=== PATIENT | male | born 1955 | race African-American/Black ===

== ENCOUNTER 2017-03-23 08:10 | Emergency (ER) | payer MEDICAID ==
[~2017-03-23] VITALS: Ht 167.6 cm; Wt 58.0 kg
[~2017-03-23 08:10] MED LIST: NAPH1POW3 PO
[2017-03-23] MEDS ORDERED: FOLIC ACID 1 MG, THIAMINE HCL 100 MG, MVI, ADULT NO.1 10 ML in DEXTROSE 5% WATER 1,000 ML IV ONE ×4 (08:30)
[2017-03-23 08:57] LABS: HEMATOCRIT. 32.8 % (42.0-52.0); HEMOGLOBIN. 11.4 g/dL (14.0-18.0); MEAN CORPUSCULAR VOLUME 97.6 fL (80.0-94.0); MEAN PLATELET VOLUME 6.8 fl (7.4-10.4); PLATELET 239 x1000/uL (130-400); RED BLOOD CELL COUNT 3.36 mill/uL (4.7-6.1); RED CELL DISTRIBUTION WIDTH 14.4 % (11.6-14.6)
[2017-03-23 09:07] LABS: INR 1.1; PARTIAL THROMBOPLASTIN TIME 29.1 sec (24.0-34.0); PROTHROMBIN TIME 11.4 sec
[2017-03-23 09:14] LABS: CARBON DIOXIDE 26 mEq/L (21-32); CHLORIDE 95 mEq/L (98-107); ETHANOL BLOOD < 10 mg/dL; TROPONIN I < 0.02 ng/mL (0.00-0.04)
[2017-03-23 09:29] LABS: *AMPHETAMINES SCREEN URINE NEGATIVE (NEGATIVE); *BARBITURATES SCREEN URINE NEGATIVE (NEGATIVE); *BENZODIAZEPINES SCREEN URINE NEGATIVE (NEGATIVE); *COCAINE SCREEN URINE NEGATIVE (NEGATIVE); CANNABINOID URINE SCREEN PRESUMTIVE POSITIVE (NEGATIVE); METHADONE URINE SCREEN NEGATIVE (NEGATIVE); OPIATES URINE SCREEN NEGATIVE (NEGATIVE); PHENCYCLIDINE URINE SCREEN NEGATIVE (NEGATIVE)
[2017-03-23] MEDS ORDERED: LORAZEPAM 0.5MG TABLET PO ONE (09:30)
[2017-03-23 09:34] LABS: NUCLEATED RED BLOOD CELLS 1 /100 WBC; PLATELET ESTIMATE NORMAL
[2017-03-23] MEDS ORDERED: MAGNESIUM 1 G PREMIX 100 ML IV ONE (10:00)
[2017-03-23 12:23] VITALS: BP 138/81
== END 2017-03-23 12:25 | disposition home or self-care (01) ==
LOC: ER 08:24
DX: E16.2 Hypoglycemia, unspecified (principal); F10.20 Alcohol dependence, uncomplicated; F20.9 Schizophrenia, unspecified; F17.200 Nicotine dependence, unspecified, uncomplicated; F12.10 Cannabis abuse, uncomplicated
CPT/HCPCS: 36415; 71010; 80048; 80305; 83735; 84484; 85025; 85610; 85730; 93005; 96365; 96366; 96367; 99285; G0482; J3411; J3475; J3490; J7070; Z7610

== ENCOUNTER 2017-04-23 16:44 | Inpatient (IN) | payer MEDICAID ==
[~2017-04-23] VITALS: Ht 167.6 cm; Wt 59.0 kg
[2017-04-23] MEDS ORDERED: ONDANSETRON HCL 4MG/2ML VIAL IV STA (17:41)
[2017-04-23] MEDS ORDERED: SODIUM CHLORIDE 0.9% 1,000 ML IV ONE (17:41)
[2017-04-23] MEDS ORDERED: FOLIC ACID 1 MG, THIAMINE HCL 100 MG, MVI, ADULT NO.1 10 ML in DEXTROSE 5% WATER 1,000 ML IV ONE ×4 (17:45)
[2017-04-23 18:19] LABS: INR 1.1; PROTHROMBIN TIME 11.3 sec (9.4-11.6)
[2017-04-23 18:22] LABS: CARBON DIOXIDE 24 mEq/L (21-32); CHLORIDE 75 mEq/L (98-107)
[2017-04-23 18:29] LABS: ETHANOL BLOOD 46 mg/dL; TROPONIN I < 0.02 ng/mL (0.00-0.04)
[2017-04-23 19:05] LABS: MEAN CORPUSCULAR VOLUME 92.6 fL (80.0-94.0); RED CELL DISTRIBUTION WIDTH 15.2 % (11.6-14.6)
[2017-04-23 19:16] LABS: BASOPHILS % 0.3 % (0.0-2.0); EOSINOPHILS % 0.2 % (0.0-5.0); HEMATOCRIT. 40.7 % (42.0-52.0); HEMOGLOBIN. 14.9 g/dL (14.0-18.0); LYMPHOCYTES % 22.6 % (20.0-50.0); MEAN CORPUSCULAR HEMOGLOBIN 33.9 pg (28.0-32.0); MEAN PLATELET VOLUME 9.1 fl (7.4-10.4); MONOCYTES % 12.7 % (2.0-8.0); NEUTROPHILS % 64.2 % (40.0-76.0); PLATELET 140 x1000/uL (130-400)
[2017-04-23] MEDS ORDERED: MAGNESIUM 1 G PREMIX 100 ML IV ONE (19:30)
[2017-04-23] MEDS ORDERED: POTASSIUM CHLORIDE 20MEQ TABLET SR PO ONE (19:30)
[2017-04-23] MEDS ORDERED: LORAZEPAM 2MG/ML CPJ IV ONE (21:15)
[2017-04-23] MEDS ORDERED: ONDANSETRON HCL 4MG/2ML VIAL IV ONE (21:15)
[2017-04-23] MEDS ORDERED: THIAMINE HCL 100 MG/1 ML 2ML VIAL ONE (21:22)
[2017-04-23] MEDS ORDERED: POTASSIUM CHLORIDE INJ 40 MEQ in SODIUM CHLORIDE 0.9% 1,000 ML IV SCH (21:30)
[2017-04-23] MEDS ORDERED: CHLORDIAZEPOXIDE 25MG CAPSULE PO PRN (21:30)
[2017-04-23] MEDS ORDERED: SODIUM CHLORIDE 0.9% 1,000 ML IV SCH (21:34)
[2017-04-23 21:39] LABS: PHOSPHORUS 2.1 mg/dL (2.5-4.9)
[2017-04-23] MEDS ORDERED: DOCUSATE SODIUM 100MG CAPSULE PO PRN (21:45)
[2017-04-23] MEDS ORDERED: IPRATROPIUM/ALBUTEROL 0.5-3(2.5)MG/3ML NEB INH PRN (21:45)
[2017-04-23] MEDS ORDERED: DIPHENHYDRAMINE 50MG/ML VIAL IV PRN (21:45)
[2017-04-23] MEDS ORDERED: MAGNESIUM/ALUMINUM HYDROXIDE/SIMETHICONE 30ML UDC PO PRN (21:45)
[2017-04-23] MEDS ORDERED: HYDROCODONE/ACETAMINOPHEN 5/325MG TABLET PO PRN (21:45)
[2017-04-23] MEDS ORDERED: ACETAMINOPHEN 650MG SUPP PR PRN (21:45)
[2017-04-23] MEDS ORDERED: ACETAMINOPHEN 650MG/20.3ML UDC GT PRN (21:45)
[2017-04-23] MEDS ORDERED: LORAZEPAM 2MG/ML CPJ IV PRN (21:45)
[2017-04-23] MEDS ORDERED: CLONIDINE 0.1MG TABLET PO PRN (21:45)
[2017-04-23 21:47] LABS: CREATINE KINASE 88 IU/L (39-308)
[2017-04-23 23:13] LABS: CHLORIDE 79 mEq/L (98-107)
[2017-04-23 23:18] LABS: CARBON DIOXIDE 28 mEq/L (21-32)
[2017-04-23 23:23] LABS: CREATINE KINASE 103 IU/L (39-308)
[2017-04-24] VITALS: BP 117/89
[2017-04-24] MEDS: ONDANSETRON HCL 4MG/2ML VIAL IV PRN ×2 (00:56→13:57)
[2017-04-24] MEDS ORDERED: KCL 20MEQ/100ML PREMIX 100 ML IV NR (01:00)
[2017-04-24 04:01] VITALS: BP 128/86
[2017-04-24] MEDS ORDERED: [UNRECOGNIZED DRUG - REMARK] IV SCH ×5 (05:00)
[2017-04-24 06:15] LABS: HEMATOCRIT. 34.2 % (42.0-52.0); HEMOGLOBIN. 12.6 g/dL (14.0-18.0); MEAN CORPUSCULAR HEMOGLOBIN 34.6 pg (28.0-32.0); MEAN CORPUSCULAR VOLUME 94.1 fL (80.0-94.0); MEAN PLATELET VOLUME 8.9 fl (7.4-10.4); PLATELET 124 x1000/uL (130-400); RED BLOOD CELL COUNT 3.64 mill/uL (4.7-6.1); RED CELL DISTRIBUTION WIDTH 14.9 % (11.6-14.6)
[2017-04-24 06:41] LABS: CARBON DIOXIDE 27 mEq/L (21-32); CHLORIDE 81 mEq/L (98-107); CREATINE KINASE 80 IU/L (39-308); HDL CHOLESTEROL 73 mg/dL (40-59); LDL CHOLESTEROL 32 mg/dL (5-100); PHOSPHORUS 2.3 mg/dL (2.5-4.9)
[2017-04-24] MEDS ORDERED: DEXT 5%/0.45% NACL KCL 40MEQ/L 1,000 ML IV SCH (07:15)
[2017-04-24 08:00] VITALS: BP 102/66
[2017-04-24] MEDS ORDERED: POTASSIUM CHLORIDE 20MEQ TABLET SR PO SCH (08:00)
[2017-04-24] MEDS ORDERED: POTASSIUM PHOS,M-BASIC-D-BASIC 10 MMOL in DEXT 5% WATER 246.6667 ML IV SCH (09:00)
[2017-04-24] MEDS: POTASSIUM CHLORIDE 20MEQ/PACKET PO SCH ×2 (09:54→11:17)
[2017-04-24] MEDS: PANTOPRAZOLE 40MG DR TABLET PO SCH (09:55)
[2017-04-24] MEDS: SODIUM CHLORIDE 0.9% INJ 3ML FLUSH IVF SCH ×3 (10:18→22:00)
[2017-04-24 12:00] VITALS: BP 109/61
[2017-04-24 12:27] LABS: NUCLEATED RED BLOOD CELLS 1 /100 WBC; PLATELET ESTIMATE SLIGHTLY DECREASED
[2017-04-24] MEDS ORDERED: POTASSIUM CHLORIDE 20MEQ TABLET SR PO NR (12:30)
[2017-04-24] MEDS ORDERED: SODIUM CHLORIDE 0.9% 1,000 ML IV SCH ×2 (12:45→14:00)
[2017-04-24] MEDS ORDERED: [UNRECOGNIZED DRUG - REMARK] IV SCH ×5 (14:30)
[2017-04-24 16:00] VITALS: BP 130/89
[2017-04-24] MEDS: CHLORDIAZEPOXIDE 25MG CAPSULE PO SCH ×2 (16:18→17:39)
[2017-04-24 17:25] LABS: CARBON DIOXIDE 21 mEq/L (21-32); CHLORIDE 89 mEq/L (98-107)
[2017-04-24 18:29] LABS: CLARITY URINE CLEAR (CLEAR); COLOR URINE DARK YELLOW (YELLOW); GLUCOSE URINE TRACE (NEGATIVE); KETONES URINE TRACE (NEGATIVE); LEUKOCYTE ESTERASE URINE TRACE (NEGATIVE); NITRITE URINE NEGATIVE (NEGATIVE); OCCULT BLOOD URINE NEGATIVE (NEGATIVE); PH URINE 5.5 (4.5-8.0); PROTEIN URINE NEGATIVE (NEGATIVE); SPECIFIC GRAVITY URINE 1.024 (1.005-1.030)
[2017-04-24 18:57] LABS: *AMPHETAMINES SCREEN URINE NEGATIVE (NEGATIVE); *BARBITURATES SCREEN URINE NEGATIVE (NEGATIVE); *BENZODIAZEPINES SCREEN URINE NEGATIVE (NEGATIVE); *COCAINE SCREEN URINE NEGATIVE (NEGATIVE); CANNABINOID URINE SCREEN PRESUMTIVE POSITIVE (NEGATIVE); METHADONE URINE SCREEN NEGATIVE (NEGATIVE); OPIATES URINE SCREEN NEGATIVE (NEGATIVE); PHENCYCLIDINE URINE SCREEN NEGATIVE (NEGATIVE)
[2017-04-24 21:03] VITALS: BP 90/69
[2017-04-25] MEDS: POTASSIUM CHLORIDE INJ 40 MEQ in DEXT 5%/0.9% NACL 1,000 ML IV SCH ×2 (00:46→05:44)
[2017-04-25 00:48] VITALS: BP 123/86
[2017-04-25 05:00] VITALS: BP 113/80
[2017-04-25] MEDS: SODIUM CHLORIDE 0.9% INJ 3ML FLUSH IVF SCH (05:43)
[2017-04-25 06:59] LABS: CARBON DIOXIDE 25 mEq/L (21-32); CHLORIDE 99 mEq/L (98-107); PHOSPHORUS 1.4 mg/dL (2.5-4.9)
[2017-04-25 08:00] VITALS: BP 109/78
[2017-04-25 08:50] LABS: BASOPHILS % 0.1 % (0.0-2.0); EOSINOPHILS % 0.1 % (0.0-5.0); HEMATOCRIT. 30.3 % (42.0-52.0); HEMOGLOBIN. 10.5 g/dL (14.0-18.0); LYMPHOCYTES % 7.2 % (20.0-50.0); MEAN CORPUSCULAR VOLUME 97.5 fL (80.0-94.0); MEAN PLATELET VOLUME 8.5 fl (7.4-10.4); NEUTROPHILS % 84.6 % (40.0-76.0); PLATELET 112 x1000/uL (130-400); RED BLOOD CELL COUNT 3.11 mill/uL (4.7-6.1); RED CELL DISTRIBUTION WIDTH 15.5 % (11.6-14.6)
[2017-04-25] MEDS: PANTOPRAZOLE 40MG DR TABLET PO SCH (08:57)
[2017-04-25] MEDS ORDERED: CHLORDIAZEPOXIDE 25MG CAPSULE PO SCH (09:00)
[2017-04-25] MEDS ORDERED: MAGNESIUM 2 G PREMIX 50 ML IV SCH (10:00)
[2017-04-25] MEDS ORDERED: SODIUM PHOS,M-BASIC-D-BASIC 20 MM in DEXT 5% WATER 243.3333 ML IV SCH (10:00)
[2017-04-25 12:00] VITALS: BP 102/62
[2017-04-25 16:07] VITALS: BP 102/62
[2017-04-26] MEDS ORDERED: FAMOTIDINE 20MG TABLET PO SCH (09:00)
== END 2017-04-25 16:24 | disposition home or self-care (01) | DRG 469 ==
LOC: ER 16:54 → 5WST 20:02 → EDBEDREQ 20:11 → ENRESERV 20:28
PROVIDERS: ADMIT Family Medicine; ATTEND Family Medicine
DX: N17.0 Acute kidney failure with tubular necrosis (principal); G93.41 Metabolic encephalopathy; D69.6 Thrombocytopenia, unspecified; E44.0 Moderate protein-calorie malnutrition; K57.92 Diverticulitis of intestine, part unspecified, without perforation or abscess without bleeding; K76.0 Fatty (change of) liver, not elsewhere classified; E87.1 Hypo-osmolality and hyponatremia; E83.42 Hypomagnesemia; E83.39 Other disorders of phosphorus metabolism; F10.129 Alcohol abuse with intoxication, unspecified; E87.6 Hypokalemia; F12.90 Cannabis use, unspecified, uncomplicated; J44.9 Chronic obstructive pulmonary disease, unspecified; K44.9 Diaphragmatic hernia without obstruction or gangrene; R29.6 Repeated falls; M47.9 Spondylosis, unspecified; F20.9 Schizophrenia, unspecified; K40.20 Bilateral inguinal hernia, without obstruction or gangrene, not specified as recurrent; Z87.891 Personal history of nicotine dependence; Z80.3 Family history of malignant neoplasm of breast; Z68.21 Body mass index [BMI] 21.0-21.9, adult
CPT/HCPCS: 36415; 70450; 71010; 76770; 80053; 80061; 80305; 81001; 82550; 82570; 83735; 83880; 83930; 83935; 84100; 84133; 84300; 84443; 84484; 85025; 85610; 87493; 93005; 96365; 96367; 96375; 96376; 99285; G0482; J2060; J2405; J3411; J3475; J3480; J3490; J7030; J7042; J7050; J7060; J7070

== ENCOUNTER 2019-03-27 11:31 | Inpatient (IN) | payer MEDICARE, MEDICAID ==
[~2019-03-27] VITALS: Ht 195.6 cm; Wt 58.5 kg
[2019-03-27] MEDS ORDERED: SODIUM CHLORIDE 0.9% 1000ML BAG (SEPSIS BOLUS) IV ONE (12:45)
[2019-03-27 13:32] LABS: CHLORIDE 94 mEq/L (98-107)
[2019-03-27 13:35] LABS: PARTIAL THROMBOPLASTIN TIME 26.4 sec (23.4-31.0); PROTHROMBIN TIME 10.7 sec (9.6-11.0)
[2019-03-27 13:43] LABS: BASOPHILS % 0.5 % (0.0-2.0); HEMATOCRIT. 37.1 % (42.0-52.0); HEMOGLOBIN. 13.4 g/dL (14.0-18.0); LYMPHOCYTES % 8.4 % (20.0-50.0); MEAN CORPUSCULAR HEMOGLOBIN 35.3 pg (28.0-32.0); MEAN CORPUSCULAR VOLUME 97.9 fL (80.0-94.0); MONOCYTES % 14.1 % (2.0-8.0); PLATELET 228 x1000/uL (130-400); RED BLOOD CELL COUNT 3.78 mill/uL (4.7-6.1); RED CELL DISTRIBUTION WIDTH 14.7 % (11.6-14.6)
[2019-03-27] MEDS ORDERED: KCL 20MEQ/100ML PREMIX 100 ML IV ONE (15:00)
[2019-03-27] MEDS ORDERED: POTASSIUM CHLORIDE 20MEQ TABLET SR PO ONE (15:00)
[2019-03-27] MEDS ORDERED: SODIUM CHLORIDE 0.9% 1,000 ML IV SCH (16:00)
[2019-03-27] MEDS ORDERED: DIATR MEGLU/DIATRIZOATE SOLN 30ML PO SCH (16:00)
[2019-03-27] MEDS ORDERED: ACETAMINOPHEN 325MG TABLET PO PRN (16:00)
[2019-03-27 17:01] LABS: PHOSPHORUS 5.4 mg/dL (2.5-4.9)
[2019-03-27 17:05] LABS: CREATINE KINASE MB FRACTION < 1.0 ng/mL (0.5-3.6)
[2019-03-27 19:57] LABS: CREATINE KINASE 43 IU/L (39-308)
[2019-03-27 20:20] VITALS: BP 133/95
[2019-03-27 21:00] VITALS: BP 133/95
[2019-03-27] MEDS ORDERED: POTASSIUM CHLORIDE INJ 40 MEQ in DEXT 5% WATER 250 ML IV NR (22:00)
[2019-03-28] VITALS: BP 128/80
[2019-03-28] MEDS: DEXT 5%/0.9% NACL 1,000 ML IV SCH ×2 (00:29→09:27)
[2019-03-28 04:00] VITALS: BP 139/93
[2019-03-28 06:01] LABS: PHOSPHORUS 2.5 mg/dL (2.5-4.9)
[2019-03-28 06:16] LABS: HEMATOCRIT. 34.3 % (42.0-52.0); HEMOGLOBIN. 12.2 g/dL (14.0-18.0); MEAN CORPUSCULAR HEMOGLOBIN 35.5 pg (28.0-32.0); MEAN PLATELET VOLUME 8.3 fl (7.4-10.4); PLATELET 181 x1000/uL (130-400); RED BLOOD CELL COUNT 3.43 mill/uL (4.7-6.1); RED CELL DISTRIBUTION WIDTH 14.5 % (11.6-14.6)
[2019-03-28] MEDS ORDERED: POTASSIUM CHLORIDE INJ 40 MEQ in DEXT 5% WATER 250 ML IV ONE (07:45)
[2019-03-28 08:00] VITALS: BP 132/87
[2019-03-28] MEDS ORDERED: POTASSIUM CHLORIDE INJ 40 MEQ in DEXT 5% WATER 250 ML IV NR (08:00)
[2019-03-28] MEDS ORDERED: SODIUM BICARBONATE 8.4% 1 MEQ/ML 50ML SYR IV NR (09:34)
[2019-03-28 10:05] LABS: NUCLEATED RED BLOOD CELLS 1 /100 WBC
[2019-03-28 10:06] LABS: PLATELET ESTIMATE NORMAL
[2019-03-28] MEDS ORDERED: POTASSIUM CHLORIDE INJ 60 MEQ in DEXT 5% WATER 500 ML IV NR (10:30)
[2019-03-28 10:50] LABS: BG BASE EXCESS -13.1 mmol/L (-2.0-2.0); BG CARBOXYHEMOGLOBIN 0.3 % (0.5-1.5); BG DEOXYHEMOGLOBIN 2.1 % (0.0-5.0); BG FRACTION INSPIRED OXYGEN 21; BG HCO3 ACT 8.9 mmol/L (22.0-26.0); BG METHEMOGLOBIN 0.3 % (0.0-1.5); BG OXYGEN SATURATION 97.9 % (92.0-98.5); BG OXYHEMOGLOBIN 97.3 % (94.0-97.0); BG PCO2 14.2 mmHg (35.0-45.0); BG PH 7.414 (7.350-7.450); BG PO2 136.8 mmHg (75.0-100.0); BG SAMPLE SITE RIGHT BRACHIAL; BG TOTAL HEMOGLOBIN 11.3 g/dL (12.0-18.0); BG VENT MODE ROOM AIR
[2019-03-28] MEDS: SODIUM BICARBONATE 100 MEQ in SODIUM CHLORIDE 0.45% 900 ML IV SCH ×2 (11:22→23:50)
[2019-03-28 12:00] VITALS: BP 115/78
[2019-03-28 12:07] LABS: CLARITY URINE CLEAR (CLEAR); COLOR URINE DARK YELLOW (YELLOW); KETONES URINE TRACE (NEGATIVE); LEUKOCYTE ESTERASE URINE NEGATIVE (NEGATIVE); NITRITE URINE NEGATIVE (NEGATIVE); OCCULT BLOOD URINE NEGATIVE (NEGATIVE); PROTEIN URINE 1+ (NEGATIVE); SPECIFIC GRAVITY URINE 1.018 (1.005-1.030)
[2019-03-28] MEDS: ONDANSETRON HCL 4MG/2ML INJ IV PRN (15:49)
[2019-03-28 16:00] VITALS: BP 114/84
[2019-03-28 17:02] LABS: *AMPHETAMINES SCREEN URINE NEGATIVE (NEGATIVE); *BARBITURATES SCREEN URINE NEGATIVE (NEGATIVE)
[2019-03-28 17:03] LABS: *BENZODIAZEPINES SCREEN URINE NEGATIVE (NEGATIVE); *COCAINE SCREEN URINE NEGATIVE (NEGATIVE); CANNABINOID URINE SCREEN PRESUMTIVE POSITIVE (NEGATIVE); METHADONE URINE SCREEN NEGATIVE (NEGATIVE); OPIATES URINE SCREEN NEGATIVE (NEGATIVE); PHENCYCLIDINE URINE SCREEN NEGATIVE (NEGATIVE)
[2019-03-28 20:42] VITALS: BP 98/68
[2019-03-29] VITALS: BP 101/69
[2019-03-29 04:00] VITALS: BP 97/62
[2019-03-29] MEDS: SODIUM BICARBONATE 100 MEQ in SODIUM CHLORIDE 0.45% 900 ML IV SCH ×4 (05:52→18:18)
[2019-03-29 07:51] LABS: FOLIC ACID (FOLATE) SERUM 6.4 ng/mL (>5.38)
[2019-03-29 08:00] VITALS: BP 111/51
[2019-03-29] MEDS ORDERED: POTASSIUM CHLORIDE INJ 40 MEQ in DEXT 5% WATER 250 ML IV SCH (09:30)
[2019-03-29 09:43] LABS: HEMATOCRIT. 26.8 % (42.0-52.0); HEMOGLOBIN. 9.5 g/dL (14.0-18.0); MEAN CORPUSCULAR VOLUME 98.1 fL (80.0-94.0); MEAN PLATELET VOLUME 8.4 fl (7.4-10.4); PLATELET 151 x1000/uL (130-400); RED BLOOD CELL COUNT 2.73 mill/uL (4.7-6.1); RED CELL DISTRIBUTION WIDTH 14.6 % (11.6-14.6)
[2019-03-29 10:14] LABS: PLATELET ESTIMATE NORMAL
[2019-03-29 11:31] VITALS: BP 97/62
[2019-03-29] MEDS: ONDANSETRON HCL 4MG/2ML INJ IV PRN (13:57)
[2019-03-29 15:49] VITALS: BP 113/92
[2019-03-29 20:21] VITALS: BP 91/62
[2019-03-30 00:27] VITALS: BP 96/71
[2019-03-30] MEDS: SODIUM BICARBONATE 100 MEQ in SODIUM CHLORIDE 0.45% 900 ML IV SCH ×3 (01:46→15:50)
[2019-03-30] MEDS: ZOLPIDEM TARTRATE 5MG TABLET PO PRN (01:46)
[2019-03-30 04:43] VITALS: BP 110/61
[2019-03-30 07:36] LABS: PHOSPHORUS 1.2 mg/dL (2.5-4.9)
[2019-03-30 07:53] LABS: BASOPHILS % 0.6 % (0.0-2.0); EOSINOPHILS % 0.3 % (0.0-5.0); HEMATOCRIT. 25.6 % (42.0-52.0); HEMOGLOBIN. 9.2 g/dL (14.0-18.0); LYMPHOCYTES % 7.5 % (20.0-50.0); MEAN CORPUSCULAR HEMOGLOBIN 35.5 pg (28.0-32.0); MEAN CORPUSCULAR VOLUME 98.5 fL (80.0-94.0); MEAN PLATELET VOLUME 8.9 fl (7.4-10.4); MONOCYTES % 9.9 % (2.0-8.0); NEUTROPHILS % 81.7 % (40.0-76.0); PLATELET 124 x1000/uL (130-400); RED CELL DISTRIBUTION WIDTH 15.1 % (11.6-14.6)
[2019-03-30 08:00] VITALS: BP 170/59
[2019-03-30] MEDS ORDERED: POTASSIUM CHLORIDE 20MEQ TABLET SR PO NR (11:30)
[2019-03-30 12:00] VITALS: BP 105/68
[2019-03-30] MEDS ORDERED: MAGNESIUM 2 G PREMIX 50 ML IV NR (13:00)
[2019-03-30] MEDS ORDERED: CEFTRIAXONE 1 G PREMIX 50 ML IV SCH (13:00)
[2019-03-30] MEDS ORDERED: CEFTRIAXONE 1,000 MG in DEXTROSE 5% WATER 50 ML IV SCH (13:00)
[2019-03-30] MEDS ORDERED: POTASSIUM PHOS,M-BASIC-D-BASIC 30 MMOL in DEXT 5% WATER 500 ML IV NR (13:00)
[2019-03-30 15:08] LABS: ANTI-NUCLEAR ANTIBODIES DIRECT Negative (Negative)
[2019-03-30 16:00] VITALS: BP 102/61
[2019-03-30] MEDS ORDERED: POTASSIUM CHLORIDE 20MEQ TABLET SR PO SCH (16:00)
[2019-03-30 20:00] VITALS: BP 90/60
[2019-03-31] VITALS: BP 100/67
[2019-03-31 04:00] VITALS: BP 100/76
[2019-03-31] MEDS: SODIUM BICARBONATE 100 MEQ in SODIUM CHLORIDE 0.45% 900 ML IV SCH (04:27)
[2019-03-31 08:09] LABS: BASOPHILS % 0.3 % (0.0-2.0); EOSINOPHILS % 0.5 % (0.0-5.0); HEMATOCRIT. 28.1 % (42.0-52.0); HEMOGLOBIN. 9.9 g/dL (14.0-18.0); LYMPHOCYTES % 10.5 % (20.0-50.0); MEAN CORPUSCULAR HEMOGLOBIN 34.7 pg (28.0-32.0); MEAN CORPUSCULAR VOLUME 98.6 fL (80.0-94.0); MEAN PLATELET VOLUME 9.3 fl (7.4-10.4); MONOCYTES % 11.6 % (2.0-8.0); NEUTROPHILS % 77.1 % (40.0-76.0); PLATELET 130 x1000/uL (130-400); RED BLOOD CELL COUNT 2.85 mill/uL (4.7-6.1)
[2019-03-31 08:38] LABS: PHOSPHORUS 3.5 mg/dL (2.5-4.9)
[2019-03-31 08:40] VITALS: BP 110/71
[2019-03-31] MEDS ORDERED: POTASSIUM CHLORIDE 20MEQ TABLET SR PO NR (09:45)
[2019-03-31 10:06] LABS: COMPLEMENT C3 54 mg/dL (82-167)
[2019-03-31] MEDS ORDERED: MAGNESIUM 2 G PREMIX 50 ML IV NR (10:30)
[2019-03-31] MEDS: SODIUM CHLORIDE 0.45% 1,000 ML IV SCH ×2 (11:26→22:23)
[2019-03-31 12:03] VITALS: BP 110/77
[2019-03-31 12:15] VITALS: BP 110/77
[2019-03-31] MEDS ORDERED: CEFTRIAXONE 1 G PREMIX 50 ML IV SCH (14:00)
[2019-03-31 16:10] VITALS: BP 115/70
[2019-03-31] MEDS: ZOLPIDEM TARTRATE 5MG TABLET PO PRN (22:19)
[2019-04-01 00:18] VITALS: BP 122/85
[2019-04-01 04:00] VITALS: BP 123/83
[2019-04-01 06:02] LABS: BASOPHILS % 0.6 % (0.0-2.0); EOSINOPHILS % 0.8 % (0.0-5.0); HEMOGLOBIN. 9.2 g/dL (14.0-18.0); LYMPHOCYTES % 11.4 % (20.0-50.0); MEAN CORPUSCULAR HEMOGLOBIN 35.3 pg (28.0-32.0); MEAN CORPUSCULAR VOLUME 99.8 fL (80.0-94.0); MONOCYTES % 12.7 % (2.0-8.0); NEUTROPHILS % 74.5 % (40.0-76.0); PLATELET 126 x1000/uL (130-400)
[2019-04-01] MEDS: SODIUM CHLORIDE 0.45% 1,000 ML IV SCH (06:17)
[2019-04-01 06:20] LABS: PHOSPHORUS 2.3 mg/dL (2.5-4.9)
[2019-04-01 08:00] VITALS: BP 107/73
[2019-04-01] MEDS ORDERED: MAGNESIUM 2 G PREMIX 50 ML IV NR (11:00)
[2019-04-01] MEDS ORDERED: SODIUM PHOS,M-BASIC-D-BASIC 20 MM in DEXT 5% WATER 243.3333 ML IV NR (12:00)
[2019-04-01 12:04] VITALS: BP 107/73
== END 2019-04-01 12:37 | disposition home or self-care (01) | DRG 438 ==
LOC: ER 11:31 → 6WST 15:47 → EDBEDREQTM 15:57 → EDBEDREQ 15:57 → ENRESERV 19:15
PROVIDERS: ADMIT Internal Medicine; ATTEND Internal Medicine
DX: K85.20 Alcohol induced acute pancreatitis without necrosis or infection (principal); E43 Unspecified severe protein-calorie malnutrition; N17.0 Acute kidney failure with tubular necrosis; E87.2 Acidosis; E87.1 Hypo-osmolality and hyponatremia; Z68.1 Body mass index [BMI] 19.9 or less, adult; D53.9 Nutritional anemia, unspecified; E87.6 Hypokalemia; E87.8 Other disorders of electrolyte and fluid balance, not elsewhere classified; F10.10 Alcohol abuse, uncomplicated; K44.9 Diaphragmatic hernia without obstruction or gangrene; K57.30 Diverticulosis of large intestine without perforation or abscess without bleeding; N18.9 Chronic kidney disease, unspecified; F32.9 Major depressive disorder, single episode, unspecified; E86.0 Dehydration; Z71.41 Alcohol abuse counseling and surveillance of alcoholic; D63.8 Anemia in other chronic diseases classified elsewhere; K76.0 Fatty (change of) liver, not elsewhere classified; E83.39 Other disorders of phosphorus metabolism; E83.42 Hypomagnesemia
CPT/HCPCS: 36415; 36600; 71045; 74176; 76705; 76770; 80048; 80076; 80305; 81003; 82150; 82375; 82550; 82553; 82607; 82728; 82746; 82805; 83540; 83550; 83735; 84100; 84132; 84145; 84484; 86038; 86160; 87015; 87045; 87427; 87449; 87493; 89055; 93005; 93970; 96365; 99285; J0696; J2405; J3475; J3480; J3490; J7030; J7042; J7060; Q9963